=== PATIENT | female | born 1950 | race Caucasian/White ===

== ENCOUNTER 2023-07-10 12:23 | Outpatient (CLI) | payer MEDICARE ==
[2023-07-10 18:45] LABS: BILIRUBIN,TOTAL 0.2 mg/dL (0.2-1.0); CALCIUM, SERUM 8.9 mg/dL (8.5-10.1); POTASSIUM 3.9 mmol/L (3.5-5.1); TOTAL PROTEIN, SERUM 7.3 g/dL (6.4-8.2)
[2023-07-10 18:57] LABS: BASOPHILS # (AUTO) 0.1 K/uL (0.0-0.2); BASOPHILS % (AUTO) 1.2 % (0.0-2.0); EOSINOPHILS # (AUTO) 0.2 K/uL (0.0-0.7); EOSINOPHILS % (AUTO) 2.4 % (0.0-6.0); HEMATOCRIT 42 % (33-45); LYMPHOCYTES % (AUTO) 35.4 % (20.0-44.0); MEAN CORPUSCULAR HEMOGLOBIN 31 PG (26.0-33.0); MEAN CORPUSCULAR HGB CONC 33 g/dl (31.0-36.0); MEAN CORPUSCULAR VOLUME 93 fL (82-100); MONOCYTES # (AUTO) 0.5 K/uL (0.1-1.30); NEUTROPHILS # (AUTO) 4.7 K/uL (1.8-8.9); PLATELET COUNT (AUTO) 369 K/uL (150-450); RED BLOOD CELL COUNT(AUTO) 4.55 MIL/uL (4.0-5.2); WHITE BLOOD COUNT (AUTO) 8.5 K/uL (4.3-11.0)
[2023-07-10 19:03] LABS: INR 0.96 (0.91-1.10); PARTIAL THROMBOPLASTIN TIME 25.9 SEC (24.3-34.3); PROTHROMBIN TIME 10.2 SECS (9.2-11.1)
== END 2023-07-10 23:59 | disposition home or self-care (01) ==
LOC: RAD 12:23
PROVIDERS: ATTEND Internal Medicine Pulmonary Disease
DX: Z01.818 Encounter for other preprocedural examination (principal); R94.31 Abnormal electrocardiogram [ECG] [EKG]
CPT/HCPCS: 36415; 71045-TC; 80053-TC; 85025-TC; 85730-TC

== ENCOUNTER 2023-07-17 07:30 | Inpatient (IN) | payer MEDICARE ==
[~2023-07-17] VITALS: Ht 160 cm; Wt 55.3 kg
[2023-07-17 08:00] VITALS: BP 131/69; TEMP 99; O2SAT 97
[2023-07-17] MEDS ORDERED: GABA-532 PO (08:44)
[2023-07-17] MEDS ORDERED: ZOLP5TAB2 PO (08:44)
[2023-07-17] MEDS ORDERED: TRAM50TA2 PO (08:44)
[2023-07-17] MEDS ORDERED: ALPR0.5T PO (08:44)
[2023-07-17] MEDS ORDERED: VANCOMYCIN 1 GM VIAL ONE (09:18)
[2023-07-17] MEDS ORDERED: LIDOCAINE 2%-EPI 1:100,000 30 ML VIAL ONE (09:18)
[2023-07-17] MEDS ORDERED: OXYMETAZOLINE HCL NASAL SPRAY 30 ML BOTTLE NS ONE (09:18)
[2023-07-17] MEDS ORDERED: FENTANYL PF 100MCG/2ML AMPUL ONE (09:22)
[2023-07-17] MEDS ORDERED: FAMOTIDINE/PF INJ 20 MG/2 ML VIAL IV ONE (09:22)
[2023-07-17] MEDS ORDERED: MIDAZOLAM HCL 2 MG/2ML VIAL ONE ×2 (09:22→13:16)
[2023-07-17] MEDS ORDERED: ROCURONIUM BROMIDE 50 MG/5 ML ONE (09:22)
[2023-07-17] MEDS ORDERED: HYDROMORPHONE 1 MG/1 ML DISP.SYRIN ONE (12:42)
[2023-07-17] MEDS ORDERED: ACETAMINOPHEN 325 MG TABLET PO PRN ×2 (13:30→19:30)
[2023-07-17] MEDS ORDERED: ONDANSETRON HCL/PF 4 MG/2 ML VIAL IVP PRN ×2 (13:30→19:30)
[2023-07-17] MEDS ORDERED: HYDROMORPHONE 1 MG/1 ML DISP.SYRIN IV PRN (13:30)
[2023-07-17] MEDS ORDERED: IV NS 0.9% 1,000 ML IV PRN (13:30)
[2023-07-17 16:27] VITALS: BP 158/93; TEMP 97.9; O2SAT 96
[2023-07-17] MEDS: HYDROCODONE/APAP 5/325MG TABLET PO PRN ×2 (16:39→20:15)
[2023-07-17 20:00] VITALS: BP 137/64; TEMP 98.8; O2SAT 96
[2023-07-17] MEDS ORDERED: VANCOMYCIN 1 GM in IV D5W 250ml IV SCH (21:45)
[2023-07-18] MEDS ORDERED: KETOROLAC TROMETHAMINE INJ 30 MG/ML VIAL IV ONE (00:30)
[2023-07-18] MEDS ORDERED: HYDROCODONE/APAP 10/325MG TABLET PO PRN ×2 (00:30→01:00)
== END 2023-07-18 05:45 | disposition left against medical advice (07) | DRG 141 ==
LOC: DS 07:30 → MED 07:31
PROVIDERS: ADMIT Nurse Practitioner Acute Care; ATTEND Nurse Practitioner Acute Care
PROC: 0NSR04Z Reposition Maxilla with Internal Fixation Device, Open Approach (ICD-10-PCS; principal; 2023-07-17)
PROC: 0NUR07Z Supplement Maxilla with Autologous Tissue Substitute, Open Approach (ICD-10-PCS; 2023-07-17)
PROC: 09BQ0ZZ Excision of Right Maxillary Sinus, Open Approach (ICD-10-PCS; 2023-07-17)
PROC: 0NBT0ZX Excision of Right Mandible, Open Approach, Diagnostic (ICD-10-PCS; 2023-07-17)
PROC: 0WC40ZZ Extirpation of Matter from Upper Jaw, Open Approach (ICD-10-PCS; 2023-07-17)
PROC: 09UQ07Z Supplement Right Maxillary Sinus with Autologous Tissue Substitute, Open Approach (ICD-10-PCS; 2023-07-17)
PROC: 0NST04Z Reposition Right Mandible with Internal Fixation Device, Open Approach (ICD-10-PCS; 2023-07-17)
PROC: 0NBR0ZX Excision of Maxilla, Open Approach, Diagnostic (ICD-10-PCS; 2023-07-17)
DX: S02.40CB Maxillary fracture, right side, initial encounter for open fracture (principal); M87.88 Other osteonecrosis, other site; S02.69XK Fracture of mandible of other specified site, subsequent encounter for fracture with nonunion; S02.40DB Maxillary fracture, left side, initial encounter for open fracture; D48.19 Other specified neoplasm of uncertain behavior of connective and other soft tissue; M27.2 Inflammatory conditions of jaws; M27.40 Unspecified cyst of jaw; F41.9 Anxiety disorder, unspecified; X58.XXXA Exposure to other specified factors, initial encounter; Y93.9 Activity, unspecified; Y92.009 Unspecified place in unspecified non-institutional (private) residence as the place of occurrence of the external cause; Z91.199 Patient's noncompliance with other medical treatment and regimen due to unspecified reason
CPT/HCPCS: A4223; C1713; G0378; J1170; J1885; J2250; J2405; J2704; J2765; J3010; J3370; J3490; J7030; J7060